=== PATIENT | female | born 1995 | race African-American/Black ===

== ENCOUNTER 2021-04-18 08:03 | Day surgery (SDC) | payer OTHER ==
[~2021-04-18] VITALS: Ht 167.6 cm; Wt 93.9 kg
[2021-04-18 09:40] LABS: BASOPHILS % (AUTO) 0.3 % (0.0-2.0); EOSINOPHILS % (AUTO) 0.5 % (0.0-4.0); HEMATOCRIT 33.3 % (36-48); LYMPHOCYTES # (AUTO) 1.1 K/uL (1.0-5.5); MEAN CORPUSCULAR HEMOGLOBIN 26 pg (27-31); MEAN CORPUSCULAR HGB CONC 33 % (32-36); MEAN CORPUSCULAR VOLUME 77 fL (79.0-98.0); MONOCYTES # (AUTO) 0.5 K/uL (0.0-1.0); MONOCYTES % (AUTO) 7.2 % (1.7-9.3); NEUTROPHILS # (AUTO) 4.7 K/uL (1.8-7.7); PLATELET COUNT (AUTO) 195 K/uL (130-430); RED BLOOD CELL COUNT(AUTO) 4.31 MIL/uL (4.2-6.2); RED CELL DISTRIBUTION WIDTH 17.3 % (9.0-15.0); WHITE BLOOD COUNT (AUTO) 6.3 K/uL (4.8-10.8)
[2021-04-18 11:13] VITALS: BP_SYST 120
[2021-04-18] MEDS ORDERED: ACETAMINOPHEN 325 MG TABLET PO PRN (11:15)
[2021-04-18] MEDS ORDERED: oxyCODONE HCL 5 MG TABLET PO PRN (11:15)
[2021-04-18] MEDS ORDERED: NS 1000 ML IV.SOLN IV ONE (11:17)
[2021-04-18] MEDS ORDERED: LR 1,000 ML IV.SOLN IV ONE (11:17)
[2021-04-18] MEDS ORDERED: BUPIVACAINE /PF 0.75% 10 ML VIAL INJ ONE (11:17)
== END 2021-04-18 16:20 | disposition home or self-care (01) ==
LOC: SDS 08:03 → SMU 08:05 → SPU 12:23 → SDS 16:20
PROVIDERS: ATTEND Obstetrics & Gynecology
DX: O34.32 Maternal care for cervical incompetence, second trimester (principal); Z3A.14 14 weeks gestation of pregnancy
CPT/HCPCS: 36415 ×2; 59320; 85025; 86886; 86900; 86901; 87426; J3490; J7030; J7120